=== PATIENT | male | born 1970 | race Caucasian/White ===

== ENCOUNTER 2018-11-01 04:07 | Emergency (ER) | payer SELFPAY ==
[~2018-11-01] VITALS: Ht 167.6 cm; Wt 77.9 kg
[~2018-11-01 04:07] MED LIST: HYDR-4011 PO; IBUP800T48 PO
[2018-11-01 04:10] VITALS: Ht 167.6 cm; Wt 77.9 kg
[2018-11-01] MEDS ORDERED: ONDANSETRON 4 MG INJ IV STA (04:27)
[2018-11-01] MEDS ORDERED: morphine 4 MG/ML VIAL IV STA ×2 (04:27→05:58)
[2018-11-01] MEDS ORDERED: LACTATED RINGER'S 1,000 ML IV STA (04:27)
[2018-11-01] MEDS ORDERED: LIDOCAINE 1% (MDV) 20 ML INJ SC ONE (05:00)
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
[2018-11-01] MEDS ORDERED: BACITRACIN 0.5%/ZINC 28.35 GM OINT TOP ONE (06:30)
[2018-11-01 06:51] VITALS: BP 117/75; PULSE 89; RESP 18
== END 2018-11-01 07:03 | disposition home or self-care (01) ==
LOC: E/R 04:07
DX: S01.111A Laceration without foreign body of right eyelid and periocular area, initial encounter (principal); S01.112A Laceration without foreign body of left eyelid and periocular area, initial encounter; R40.2142 Coma scale, eyes open, spontaneous, at arrival to emergency department; R40.2362 Coma scale, best motor response, obeys commands, at arrival to emergency department; R40.2252 Coma scale, best verbal response, oriented, at arrival to emergency department; Y04.2XXA Assault by strike against or bumped into by another person, initial encounter
CPT/HCPCS: 12014; 70450; 70486; 96361; 96374; 96375; 99285; J2270; J2405; J7120